=== PATIENT | female | born 2005 | race Caucasian/White ===

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

== ENCOUNTER 2023-06-07 01:36 | Emergency (ER) | payer OTHER, SELFPAY ==
[2023-06-07 01:54] VITALS: BP 115/78; PULSE 91; RESP 18; TEMP 36.6; O2SAT 98; BMI 26.0
== END 2023-06-07 04:12 | disposition left against medical advice (07) ==
PROVIDERS: Emergency Provider Emergency Medicine
DX: S69.90XA Unspecified injury of unspecified wrist, hand and finger(s), initial encounter (principal); W22.09XA Striking against other stationary object, initial encounter; Y93.E1 Activity, personal bathing and showering; Y92.012 Bathroom of single-family (private) house as the place of occurrence of the external cause; Y99.9 Unspecified external cause status
CPT/HCPCS: 99281

== ENCOUNTER 2024-03-01 17:42 | Emergency (ER) | payer OTHER, SELFPAY ==
--- NOTE | 2024-03-01 17:49 | ECG_ITS ---
Test Reason : CHEST PAIN Blood Pressure : / mmHG Vent. Rate : 067 BPM Atrial Rate : 067 BPM P-R Int : 160 ms QRS Dur : 086 ms QT Int : 384 ms P-R-T Axes : 046 099 040 degrees QTc Int : 405 ms Normal sinus rhythm Rightward axis Borderline ECG When compared with ECG of 21-OCT-2012 19:33, Rightward axis noted Referred By: Generic ED Physician Electronically Signed By:SUDHIR HAGAN MD
[2024-03-01 18:14] VITALS: BP 129/84; PULSE 69; RESP 14; TEMP 36.5; O2SAT 99; BMI 29.8
--- NOTE | 2024-03-01 18:14 | ED.GENADULT ---
HPI - General Adult General Chief complaint: Abdominal Pain Stated complaint: Chest pain + abd pain Time Seen by Provider: 03/02/24 00:27 Source: patient Mode of arrival: ambulatory Limitations: no limitations History of Present Illness ED Provider: Mariah Moreira NP HPI narrative: Patient is a 18-year-old female who presents to the emergency department for evaluation. She reports that for ?many years? since she was a child she is experienced issues with diffuse abdominal cramping and varying constipation and diarrhea. The past year she has been experiencing intermittent diffuse anterior chest pain associated with her abdominal pain. She reports that 2 weeks ago she was evaluated at primary care doctor's office that she was experiencing associated nausea, she was given a prescription for Zofran which did help her nausea and she was advised to get lab work done but she never made it to the lab. She states ?I just want to know what is going on this has been going on for 2 many years and I need answers?. She states that she requested a GI referral from her most recent appointment but she was not seen by her primary care provider and she was advised that she needed to have a follow-up with her PCP before could be given. She denies fevers, chills, recent ill contacts, URI symptoms, cough, shortness of breath, hematemesis, hematochezia, melena, pelvic pain, abnormal vaginal discharge or abnormal bleeding, urinary frequency/urgency/hesitancy. Related Data Previous Rx's ?Medication ?Instructions ?Recorded aluminum-mag hydroxide-simethicone 5 ml PO 5XD PRN indigestion #30 mL 04/16/21 400 mg-400 mg-40 mg/5 mL oral susp (Maalox Maximum Strength) famotidine 20 mg tablet (Pepcid) 20 mg PO DAILY #14 tabs 04/16/21 ondansetron HCl 4 mg tablet 4 mg PO Q8H PRN nausea and 04/16/21 (Zofran) vomiting #10 tabs amoxicillin 875 mg-potassium 1 tab PO BID 10 days #20 tabs 08/07/21 clavulanate 125 mg tablet (Augmentin) ibuprofen 600 mg tablet 600 mg PO Q6H PRN fever #14 tabs 08/07/21 amoxicillin 875 mg-potassium 1 tab PO BID 7 days #14 tabs 11/10/21 clavulanate 125 mg tablet lidocaine HCl 2 % mucosal solution 1 appl mucous membrane TID PRN 10/09/22 (Lidocaine Viscous) pain #100 mL valacyclovir 1 gram tablet 2,000 mg (2 x 1 gram) PO BID #4 10/09/22 tabs dicyclomine 20 mg tablet 20 mg PO QID #20 tabs 03/02/24 Allergies Allergy/AdvReac Type Severity Reaction Status Date / Time No Known Allergies Allergy Verified 03/01/24 18:16 Review of Systems Review of Systems: Yes all other systems are reviewed and are negative [facility] Past Medical History Attestation statement: The following information was validated with the patient. Source: old records reviewed Medical History Anxiety Social History Social History Alcohol intake: never Patient Tobacco Use Status: Never used Tobacco Advance Directives: No Advance Directives Information Provided: Yes Physical Exam ED Vital Signs: Vital Signs - 24 hr 03/01/24 18:14 03/02/24 00:43 Temperature 97.7 F 97.6 F Pulse Rate 69 68 Respiratory Rate 14 17 Blood Pressure 129/84 116/67 Pulse Oximetry 99 95 Oxygen Delivery Method Room Air Room Air BMI result Body Mass Index 29.8 Appearance: Alert.?Oriented to person, place and time. No acute distress.?Normal affect. Eyes: Pupils equal, round and reactive to light.? ENT: Pharynx normal.?? Neck: Normal inspection.? Neck supple.?? CVS: Heart sounds normal. Normal heart rate and rhythm.? Pulses normal.?? Respiratory: No respiratory distress.? Lung sounds clear to auscultation bilaterally?? Abdomen: Soft and non-tender. Normoactive bowel sounds. No pulsatile mass.?? Skin: Skin warm and dry.? Normal skin color.? Extremities: No lower extremity edema.? No calf ttp? Neuro: Moves all extremities spontaneously. Sensation intact bilaterally. Ambulates with normal steady gait. Course Course Course Narrative: RME, this is a rapid medical exam performed by Srinivasan Che please refer to primary provider for complete H&P- 18-year-old female presents for evaluation of chest pain and upper abdominal pain on and off for the last few years. She has not seen GI in the past. Plan for labs including LFTs, lipase and EKG. Medical Decision Making Medical Decision Making [facility] Narrative: Patient is a 18-year-old female who reports an ongoing history with abdominal pain constipation and diarrhea as per HPI who presents today for persistent symptoms in addition to intermittent chest pain over the past year. Overall she appears well, she is nontoxic afebrile without tachycardia tachypnea or hypoxia. She is speaking clear full sentences. Her abdominal examination is benign, no rigidity guarding, no rebound tenderness. She is drinking a soda and eating a bag of chips at the time of my evaluation. Clinically does not appear consistent with acute intra-abdominal etiology. Serum labs were obtained prior to my assumption of care; CBC is without leukocytosis anemia or thrombocytopenia. No electrolyte derangement. No FILI. Transaminases and lipase are within normal range. HCG is negative. High sensitive troponin is below detectable limits, EKG is nonischemic revealing normal sinus rhythm with ventricular rate of 67, QTC 405, no ST elevation, no ST depression. Review possible etiologies for symptoms including GERD, gastritis, IBS, suspect less likely to be IBD. Not consistent with cholecystitis, pancreatitis, SBO, diverticulitis, appendicitis. Recommended trial of dicyclomine for pain, and provided contact information for Gastroenterology further outpatient follow-up given chronicity of symptoms. Discussed worrisome signs and symptoms that would warrant re-evaluation in the emergency department. All questions answered. Stable for discharge Differential Diagnosis Differential Diagnoses: The differential diagnosis associated with the presentation includes (See narrative above) Admission/Observation Consideration of admission/observation: Escalation of care including admission/observation considered Lab Data [facility] Lab Attestation statement: I reviewed the patient's lab results. (See narrative above) 03/01/24 18:30 03/01/24 18:30 Labs: Lab Results 03/01/24 03/01/24 Range/Units 18:30 18:37 WBC 6.9 (4.8-10.8) X10*3/uL RBC 5.00 (4.20-5.50) X10*6/uL Hgb 14.7 (12.0-16.0) g/dl Hct 43.2 (37.0-47.0) % MCV 86.4 (80.0-98.0) fL MCH 29.4 (27.0-33.0) pg MCHC 34.0 (31.0-35.0) g/dl RDW 12.2 (11.0-16.0) % Plt Count 250 (160-400) X10*3/uL MPV 9.3 L (9.4-12.3) fL Immature Gran % (Auto) 0.1 (0.0-0.4) % Neut % (Auto) 60.0 (45-73) % Lymph % (Auto) 29.1 (20-40) % [place] % (Auto) 9.7 (2-11) % Eos % (Auto) 1.0 (0-4) % Baso % (Auto) 0.1 (0-2) % Lymph # (Auto) 2.0 (1.2-4.9) X10*3/uL [place] # (Auto) 0.7 (0.1-1.2) X10*3/uL Eos # (Auto) 0.1 (0.0-0.4) X10*3/uL Baso # (Auto) 0.0 (0.0-0.2) X10*3/uL Abs Immat Gran (auto) 0.01 (0.00-0.03) X10*3/uL Absolute Neuts (auto) 4.2 (2.0-8.3) x10*3/uL Absolute Nucleated RBC 0.000 (0.0-0.012) X10*3/uL Nucleated RBC % (auto) 0.0 (0.0-0.2) /100WBC PT 12.1 (11.1-13.3) SEC INR 1.0 (0.9-1.1) Sodium 139 (135-145) mmol/L Potassium 3.9 (3.3-5.1) mmol/L Chloride 106 (96-108) mmol/L Carbon Dioxide 27 (22-29) mmol/L Anion Gap 10 L (12-20) BUN 10 (9-16) mg/dL Creatinine 0.73 (0.5-1.4) mg/dL Estim Creat Clear Calc 102.2 Estimated GFR > 60 Random Glucose 76 (60-115) mg/dL Calcium 9.4 (8.4-10.2) mg/dL Total Bilirubin 0.5 (0.0-1.0) mg/dL AST 15 (5-31) U/L ALT 11 (0-31) U/L Alkaline Phosphatase 60 (39-117) U/L Troponin I High Sens < 2.7 (<3.5-17.0) ng/L Total Protein 7.6 (6.5-8.0) g/dL Albumin 4.4 (3.5-5.0) g/dL Lipase 13 (8-78) U/L Beta HCG, Quant < 2 mIU/mL Urine Color Yellow Urine Appearance Clear Urine pH 7.0 (5.0-9.0) Ur Specific [place] 1.020 (1.005-1.025) Urine Protein Negative (Neg-Trace) mg/dL Urine Glucose (UA) Negative (Negative) mg/dL Urine Ketones Negative (Negative) mg/dL Urine Blood Negative (Negative) Urine Nitrite Negative (Negative) Ur Leukocyte Esterase Negative (Negative) Urine RBC 0-2 (0-2) /HPF Urine WBC 0-5 (0-5) /HPF Ur Squamous Epith Cells 0-2 (0-2) /HPF Urine Bacteria None Seen (None Seen) Hyaline Casts 0-2 (0-2) /LPF Independent Historian Clinical information obtained from an independent historian. History obtained from or confirmed by: Spouse Tests considered The following testing was considered but not selected: See narrative above, no indication for abdominal CT. Prescription Management I considered prescription management with: Pain Medication Discharge Plan Discharge Clinical Impression: Abdominal pain Patient Disposition: Home, Self-Care Instructions: Abdominal Pain (ED) Additional Instructions: You can take ibuprofen 200 mg, 3 tablets (600mg) every 6-8 hours as needed for pain, in addition to Tylenol 500 mg, 2 tablets (1,000mg) every 4-6 hours as needed for pain, but not to exceed 3 doses daily (3,000mg).? Take dicyclomine as prescribed for abdominal pain. Contact Gastroenterology office to arrange for a new patient visit, you may contact your primary care doctor's office as well to see if they can help coordinate a GI appointment if there is any delay an appointment through [place]. Return back to emergency department any new or worsening symptoms or concerns. Prescriptions: New dicyclomine 20 mg tablet 20 mg PO QID Qty: 20 0RF No Action alum-mag hydroxide-simeth [Maalox Maximum Strength] 400-400-40 mg/5 mL suspension 5 ml PO 5XD PRN (Reason: indigestion) Qty: 30 0RF ondansetron HCl [Zofran] 4 mg tablet 4 mg PO Q8H PRN (Reason: nausea and vomiting) Qty: 10 0RF famotidine [Pepcid] 20 mg tablet 20 mg PO DAILY Qty: 14 0RF amoxicillin-pot clavulanate [Augmentin] 875-125 mg tablet 1 tab PO BID 10 Days Qty: 20 0RF ibuprofen 600 mg tablet 600 mg PO Q6H PRN (Reason: fever) Qty: 14 0RF amoxicillin-pot clavulanate 875-125 mg tablet 1 tab PO BID 7 Days Qty: 14 0RF valacyclovir 1 gram tablet 2,000 mg PO BID Qty: 4 0RF lidocaine HCl [Lidocaine Viscous] 2 % solution 1 appl mucous membrane TID PRN (Reason: pain) Qty: 100 0RF Referrals: Dandy Luna MD [Physician] - Print Language: [place]
[2024-03-01 18:43] LABS: Basophils Percent Auto 0.1 % (0-2); Eosinophils Absolute Auto 0.1 X10*3/uL (0.0-0.4); Hematocrit 43.2 % (37.0-47.0); Hemoglobin 14.7 g/dl (12.0-16.0); Imm Gran Abs Auto 0.01 X10*3/uL (0.00-0.03); Imm Gran Pct Auto 0.1 % (0.0-0.4); Lymphocytes Percent Auto 29.1 % (20-40); MANUAL DIFF FLAG NO; Mean Corpuscular Hemoglobin 29.4 pg (27.0-33.0); Mean Corpuscular Volume 86.4 fL (80.0-98.0); Mean Platelet Volume 9.3 fL (9.4-12.3); Monocytes Absolute Auto 0.7 X10*3/uL (0.1-1.2); Monocytes Percent Auto 9.7 % (2-11); Neutrophils Absolute Auto 4.2 x10*3/uL (2.0-8.3); Platelet Count 250 X10*3/uL (160-400); Red Cell Distribution Width 12.2 % (11.0-16.0); White Blood Count 6.9 X10*3/uL (4.8-10.8)
[2024-03-01 18:44] LABS: Appearance Urine Clear; Color Urine Yellow; Glucose Urine UA Negative (Negative); Leukocyte Esterase Urine Negative (Negative); Nitrite Urine Negative (Negative); Urine Blood Negative (Negative); Urine Ketones Negative (Negative); Urine Protein Negative (Neg-Trace)
[2024-03-01 18:49] LABS: Bacteria Urine None Seen (None Seen); Hyaline Casts Urine 0-2 /LPF (0-2); RBC Urine 0-2 /HPF (0-2); Squamous Epithelial Cell Urine 0-2 /HPF (0-2); WBC Urine 0-5 /HPF (0-5)
[2024-03-01 18:51] LABS: Prothrombin Time 12.1 SEC (11.1-13.3)
[2024-03-01 19:06] LABS: Alanine Aminotransferase 11 U/L (0-31); Albumin Level 4.4 g/dL (3.5-5.0); Alkaline Phosphatase 60 U/L (39-117); Anion Gap 10 (12-20); Aspartate Amino Transferase 15 U/L (5-31); Bilirubin Total 0.5 mg/dL (0.0-1.0); Blood Urea Nitrogen 10 mg/dL (9-16); Calcium 9.4 mg/dL (8.4-10.2); Carbon Dioxide 27 mmol/L (22-29); Chloride 106 mmol/L (96-108); Creatinine Clr Calc Pharmacy 102.2; Estimated Glomerular Filt Rate > 60; Glucose Random 76 mg/dL (60-115); Lipase 13 U/L (8-78); Potassium 3.9 mmol/L (3.3-5.1); Sodium 139 mmol/L (135-145); Total Protein 7.6 g/dL (6.5-8.0)
[2024-03-01 19:08] LABS: HCG Quantitative < 2 mIU/mL
[2024-03-01 19:09] LABS: Troponin-I High Sensitivity < 2.7 ng/L (<3.5-17.0)
[2024-03-02 00:43] VITALS: BP 116/67; PULSE 68; RESP 17; TEMP 36.4; O2SAT 95
[2024-03-02 01:46] VITALS: BP 116/67; PULSE 68; RESP 17; TEMP 36.4; O2SAT 95
== END 2024-03-02 01:47 | disposition home or self-care (01) ==
PROVIDERS: Physician Assistant; Emergency Provider Internal Medicine
DX: R10.10 Upper abdominal pain, unspecified (principal); R07.9 Chest pain, unspecified; R19.7 Diarrhea, unspecified; K59.00 Constipation, unspecified
CPT/HCPCS: 36415; 80053; 81001; 83690; 84484; 84702; 85025; 85610; 93005; 99283; 99284

== ENCOUNTER → 2024-03-01 17:49 | Outpatient (BNV) | payer OTHER, SELFPAY | PROVIDERS: Emergency Provider Internal Medicine; Visit Provider Internal Medicine Cardiovascular Disease | DX: R07.9 Chest pain, unspecified (principal) | CPT/HCPCS: 93010 ==

== ENCOUNTER 2025-02-03 02:52 | Emergency (ER) | payer MEDICAID, SELFPAY ==
--- NOTE | ~2025-02-03 | XR_ITS ---
CLINICAL HISTORY: cough 2 view chest x-ray Comparison: None Findings: No consolidation or effusion. Heart size is normal. No acute fracture. IMPRESSION: 1. No acute findings. This document has been electronically signed by: Juanito Hunter MD on 02/03/2025 03:30:15
[2025-02-03 02:55] VITALS: BP 120/85; PULSE 88; RESP 18; TEMP 36.6; O2SAT 96; BMI 29.1
--- NOTE | 2025-02-03 03:18 | ED_ITS ---
HPI - General Adult General Chief complaint: Upper Respiratory Symptoms Stated complaint: CP, Headache Time Seen by Provider: 02/03/25 03:02 Source: patient, RN notes reviewed and old records reviewed Mode of arrival: ambulatory Limitations: no limitations History of Present Illness ED Provider: Chinedu MELISSA narrative: your opinion 1-year-old female who denies any past medical history presents for evaluation of cough, congestion. She reports symptoms for the last 3 days. She has not checked her temperature he has had subjective fevers and chills she reports some chest tightness while coughing. Denies any significant shortness of breath but endorses production of green sputum. Denies any sore throat. She has no abdominal pain, nausea vomiting. Denies any recent travel or sick contacts Related Data Previous Rx's ?Medication ?Instructions ?Recorded aluminum-mag hydroxide-simethicone 5 ml PO 5XD PRN indigestion #30 mL 04/16/21 400 mg-400 mg-40 mg/5 mL oral susp (Maalox Maximum Strength) famotidine 20 mg tablet (Pepcid) 20 mg PO DAILY #14 tabs 04/16/21 ondansetron HCl 4 mg tablet 4 mg PO Q8H PRN nausea and 04/16/21 (Zofran) vomiting #10 tabs amoxicillin 875 mg-potassium 1 tab PO BID 10 days #20 tabs 08/07/21 clavulanate 125 mg tablet (Augmentin) ibuprofen 600 mg tablet 600 mg PO Q6H PRN fever #14 tabs 08/07/21 amoxicillin 875 mg-potassium 1 tab PO BID 7 days #14 tabs 11/10/21 clavulanate 125 mg tablet lidocaine HCl 2 % mucosal solution 1 appl mucous membrane TID PRN 10/09/22 (Lidocaine Viscous) pain #100 mL valacyclovir 1 gram tablet 2,000 mg (2 x 1 gram) PO BID #4 10/09/22 tabs dicyclomine 20 mg tablet 20 mg PO QID #20 tabs 03/02/24 azithromycin 250 mg tablet See Rx Instructions PO .COMPLEX #6 02/03/25 tabs prednisone 20 mg tablet 40 mg (2 x 20 mg) PO DAILY #10 tabs 02/03/25 Allergies Allergy/AdvReac Type Severity Reaction Status Date / Time No Known Allergies Allergy Verified 02/03/25 02:56 Review of Systems Constitutional: Constitutional: Reports body ache(s), Reports chills, Reports fatigue, Reports fever(s) and Reports headache(s) ENT: Denies vertigo, Denies dizziness, Reports headache(s) and Denies sore throat Cardiovascular: Cardiovascular: Denies dyspnea Respiratory: Respiratory: Reports change in phlegm color, Reports chest congestion, Reports cough, Reports pain with cough and Denies dyspnea Gastrointestinal: Gastrointestinal: Denies abdominal pain, Denies nausea and Denies vomiting Musculoskeletal: Musculoskeletal: Denies back pain Integumentary/Breasts: Skin/Breast: Denies rash Neurologic: Denies vertigo, Denies dizziness and Reports headache(s) Endocrine: Endocrine: Reports fatigue PMFSH Past Medical History Medical History Anxiety Social History Social History Alcohol intake: never Patient Tobacco Use Status: Never used Tobacco Advance Directives: No Do you have a plan to hurt others: No Plan Physical Exam ED Vital Signs: Vital Signs - 24 hr 02/03/25 02:55 Temperature 97.9 F Pulse Rate 88 Respiratory Rate 18 Blood Pressure 120/85 Pulse Oximetry 96 Oxygen Delivery Method Room Air BMI result Body Mass Index 29.1 Const General: healthy appearing, comfortable, no acute distress, alert and awake Nutritional Appearance: well nourished Orientation/consciousness: patient oriented x3 HENMT Head: Yes normocephalic and Yes atraumatic Eyes Eyelids: Yes eyelids normal Conjunctivae: conjunctivae normal Sclerae: sclerae normal Corneas: corneas normal Pupils: Equal, round and reactive pupils present EOM: EOMs intact bilaterally Neck Neck: Yes full ROM Resp Effort & Inspection: normal respiratory effort, able to speak in complete sentences, no audible wheezes and not labored Auscultation: clear to auscultation bilaterally Cardio Rate: regular rate Rhythm: regular rhythm GI Inspection: No distended Palpation (GI): Soft to palpation, not firm, nontender, no guarding and not rigid Skin General skin exam: elasticity normal Neuro General: patient oriented x3 Cranial nerves: Yes Equal, round and reactive pupils present and Yes Bilaterally intact EOM present Cognition (Neuro): normal cognition Extrem Other: Moving all extremities well without any obvious deformities Medical Decision Making Medical Decision Making [facility] Narrative: 19-year-old female with no significant past medical history presents for evaluation of flu-like symptoms. She is quite well appearing, physical exam is benign. Vital signs are stable. Plan for chest x-ray and viral testing. Differential Diagnosis Differential Diagnoses: The differential diagnosis associated with the presentation includes Viral syndrome Upper respiratory infection Sinusitis Allergic rhinitis Environmental allergies pneumonia Lab Data Labs: Lab Results 02/03/25 Range/Units 03:00 Influenza Type A (PCR) NEGATIVE (Negative) Influenza Type B (PCR) NEGATIVE (Negative) RSV RNA Qual (PCR) NEGATIVE (Negative) SARS-CoV-2 RNA (RT-PCR) NEGATIVE (Negative) Independent Interpretation I performed an independent interpretation of an: Plain X-Ray Interpretation: agree with Radiology interpretation Radiology Impression Discussion of test interpretation with radiology: I have reviewed the radiologist's reading. Radiologist Impression: Findings: No consolidation or effusion. Heart size is normal. No acute fracture. IMPRESSION: 1. No acute findings. This document has been electronically signed by: Juanito Hunter MD on 02/03/2025 03:30:15 Discharge Plan Discharge Clinical Impression: Upper respiratory infection Patient Disposition: Home, Self-Care Instructions: Upper Respiratory Infection (ED) Additional Instructions: your chest x-ray was clear. Your viral swabs were negative. I recommend taking azithromycin as prescribed and prednisone as well. you may benefit from an [id number] allergy medication daily follow-up with your primary doctor, return for new or worsening symptoms Prescriptions: New azithromycin 250 mg tablet See Rx Instructions .ROUTE .COMPLEX Qty: 6 0RF Rx Instructions: For 250 mg dose pack: take 500 mg today (day 1), then 250 mg for 4 days (days 2-5) prednisone 20 mg tablet 40 mg PO DAILY Qty: 10 0RF No Action alum-mag hydroxide-simeth [Maalox Maximum Strength] 400-400-40 mg/5 mL suspension 5 ml PO 5XD PRN (Reason: indigestion) Qty: 30 0RF ondansetron HCl [Zofran] 4 mg tablet 4 mg PO Q8H PRN (Reason: nausea and vomiting) Qty: 10 0RF famotidine [Pepcid] 20 mg tablet 20 mg PO DAILY Qty: 14 0RF amoxicillin-pot clavulanate [Augmentin] 875-125 mg tablet 1 tab PO BID 10 Days Qty: 20 0RF ibuprofen 600 mg tablet 600 mg PO Q6H PRN (Reason: fever) Qty: 14 0RF amoxicillin-pot clavulanate 875-125 mg tablet 1 tab PO BID 7 Days Qty: 14 0RF valacyclovir 1 gram tablet 2,000 mg PO BID Qty: 4 0RF lidocaine HCl [Lidocaine Viscous] 2 % solution 1 appl mucous membrane TID PRN (Reason: pain) Qty: 100 0RF dicyclomine 20 mg tablet 20 mg PO QID Qty: 20 0RF Print Language: [place]
--- OUTSIDE RECORDS SUMMARY | 2025-02-03 03:33 | XMS_ITS | Encounter Summary ---
Author Organization [facility] Address [address] [place] [address] Phone Care Team Providers Care Lokie Engineer Name Role Phone Bhumi Mckeon MD Primary Care Provider Encounter Details Date Type Department Care Team (Late st Contact Info) Description 05/15/2017 Conversion Encounter [facility] [address] [place] [address] Social History Tobacco Use Types Packs/Day Years Used Date Smoking Tobacco: Never Comments:Never smoker Comments Unknown Sex and Gender Information Value Date Recorded Sex Assigned at Female 07/18/2020 6:00 PM EDT Legal Sex Female 4:57 PM EDT Gender Identity Female 07/18/2020 6:00 PM EDT Sexual Orientation Bisexual 08/28/2022 9: 46 AM EST documented as of this encounter Plan of Treatment Not on file documented as of this encounter Visit Diagnoses Not on filedocumented in this encounter Care Teams Lokie Engineer Relationship Specialty Start Date End Date Bhumi Mckeon MD [address] [place] [address] PCP - General 05/09/17 06/09/24 documented as of this encounter
--- OUTSIDE RECORDS SUMMARY | 2025-02-03 03:33 | XMS_ITS | Clinical Summary ---
Author Organization [facility] Address [address] [place] [address] Phone Care Team Providers Care Appellate Law Clerk Name Role Phone Unavailable Primary Care Provider Unavailabl e Allergies No known active allergies Medications polyethylene glycol (MiraLax) 17 GM/SCOOP powderIndications:O ther constipation Take 17 g by mouth daily. Stir and dissolve powder into 4 to 8 ounces of beverage and then drink. 578 g 3 2 Active hydrOXYzine 25 MG tabletIndications:A nxiety Take 1 tablet (25 mg total) by mouth nightly as needed for anxiety. 30 tablet 1 3 Active ibuprofen 200 MG tabletIndications:H erpes labialis TAKE 3 TABLETS BY MOUTH EVERY 6 HOURS NEEDED FOR PAIN OR FEVER 120 tablet 1 3 Active ondansetron ODT 8 MG disintegrating tabletIndications:N ausea Take 1 tablet (8 mg total) by mouth every 8 (eight) hours as needed for nausea or vomiting. 14 tablet 4 Active ibuprofen 600 MG tabletIndications:A bdominal cramps Take 1 tablet (600 mg total) by mouth every 6 (six) hours as needed for mild pain or fever. 30 tablet 1 4 Active dicyclomine 20 MG tablet 4 Active omeprazole 40 MG capsuleIndications: Gastroesophageal reflux disease, unspecified whether esophagitis present Take 1 capsule (40 mg total) by mouth daily. 30 capsule 3 4 03/03/20 25 Active cetirizine 10 MG tabletIndications:A llergic rhinitis, unspecified seasonality, unspecified trigger TAKE 1 TABLET BY MOUTH NIGHTLY NEEDED FOR ALLERGIES. 90 tablet 1 4 Active Active Problems Problem Noted Date Diagnosed Date Current mild episode of jong r depressive disorder without prior episode 06/21/2022 Overview (06/21/2022): 06/21/22; consult completed. F/u scheduled. Brief johannRoberto Carlos Proctor Assessment & Plan (02/13/2023 11:19 AM EDT): 02/13/23-Symptoms continue. Pt. To reconnect with outpatient therapy. Assessment & Plan (06/28/2022 3:22 PM EDT): Identified symptoms support diagnosis related to depressive disorder. There is also a history of anxiety disorder, at this moment Abby does not report pervasive symptoms of anxiety, it is important to continue monitoring. Symptoms have been persistent, are experienced most days, and have impacted daily functioning. Follow up interventions focus on processing triggers and developing coping skills would be of benefit to support identified needs, other referrals will be discussed and completed as necessary. PLAN: 1. Follow up with [facility]; Virtual visit scheduled, Abby is aware that appt could be scheduled in person or virtual. 2. Patient goal is to develop strategies to regulate emotions. 3. Behavioral Recommendations: a. Focus on recommendations discussed today. b. Attend to scheduled appt. Assessment & Plan (06/21/2022 1:43 PM EDT): Identified symptoms support diagnosis related to depressive disorder. There is also a history of anxiety disorder, at this moment Abby does not report pervasive symptoms of anxiety, it is important to continue monitoring. Symptoms have been persistent, are experienced most days, and have impacted daily functioning. Follow up interventions focus on processing triggers and developing coping skills would be of benefit to support identified needs, other referrals will be discussed and completed as necessary. PLAN: 1. Follow up with [facility]; Virtual visit scheduled, Abby is aware that appt could be scheduled in person or virtual. 2. Patient goal is to develop strategies to regulate emotions. 3. Behavioral Recommendations: a. Focus on awareness of behaviors b. Complete task that may provide a positive reinforcement (small task are good!) Anxiety disorder 02/23/2021 Assessment & Plan (02/13/2023 11:20 AM EDT): 5/18/23-Symptoms continue. Plan to reconnect with outpatient therapist. Resolved Problems Problem Noted Date Diagnosed Date Resolved Date Encounter for surveillance o f injectable contraceptive 06/07/2021 08/28/2022 Overview (06/07/2021): Started Jun 2020. Pt on it for menses. Is in same sex relationship x 3+ years. Adjustment disorder of adolescence 07/18/2020 06/21/2022 Overview (07/18/2020): Tough time adjusting to the quarantine/pandemic, hard for her to talk about her feelings. Assessment & Plan (07/18/2020 6:08 PM EDT): Will refer to Est[facility] domestic travel consultant Acne vulgaris 11/20/2018 08/14/2023 Overview (11/20/2018): Acne for years. Mostly on face that seem deep and hurt. Seen with Carmel Yang To start tretinoin 0.25% and follow up with DR Mckeon in 8 weeks. Brother was on Accutane Assessment & Plan (07/18/2020 6:03 PM EDT): Tretinoin did not help, is very mild, will give benzoyl peroxide, clindamycin, use dove twice daily Assessment & Plan (11/20/2018 2:29 PM EST): Acne for a few years. OTC not helping. Seen today with Carmel Yang. Apply small amount tretinoin 0.25% cream 2 nights a week and then advance to every other night and if well tolerated after a few weeks then you can apply every night. Follow up with Dr Mckeon in a few months, sooner as needed. Mild intermittent asthma without complication 08/20/20 16 08/28/2022 Immunizations Immunization Administration Dates Next Due COVID-19 Pfizer, monovalent, 12+ years 1 COVID-19 Pfizer, ophelia-sucros e, 12+ years 01/22/2022 DTaP 5 07/21/2007, 5,02/02/2004,10/11,2003 H1N1 07/14/2009 HPV Vaccine 9 Valent 08/25/2017,04/17/2015 Hep A, ped/adol 08/25/2017,04/17/2015 Hep B, ped/adol 09/05/2004,02/02/2004,2003 Hib (HbOC) 09/05/2004 Hib (PRP-T) 02/02/2004,2003,2003 IPV 07/21/2007, 4,2003,08/19 Influenza Split 10/22/2012,11/22/2011,06/18/2010 Influenza, injectable, quadr ivalent, preservative free 08/14/2023,06/11/2022,06/07/2021,07/18,08/25/2017 Influenza, injectable, trivalent 009,09/12/2008,07/21/2007,08/27,08/07/2004 MMR 07/24/2004 MMRV 07/21/2007 Meningococcal Conj (Menactra) MCV4P 07/18/2020,0 04/17/2015 Pneumococcal Conjugate 09/05/2004,2003,2003,08/19 Tdap 04/17/2015 Varicella 07/24/2004 Family History Medical History Relation Name Comments Asthma Brother Anxiety disorder Mother Vicky Hopkins Depression Mother Vicky Hopkins Relation Name Status Comments Brother Alive Brother: Asthma Father Lance Quinonez Alive Father: Healthy Maternal Grandfather Materna l grandfather: Suicide, Maternal Grandmother Alive Materna l grandmother: Osteoporosis Mother Vicky Hopkins Alive Mother: Heal thy Other Family history of cancer Paternal Grandfather Paterna l grandfather: , Myocardial infarction Social History Tobacco Use Types Packs/Day Years Used Date Smoking Tobacco: Never Smokeless Tobacco: Never Comments:Never smoker Alcohol Use Standard Drinks/Week Comments No 0 (1 standard drink = 0.6 oz pur e alcohol) Hunger/Food Answer Date Recorded In the last 12 months, did y ou or your family ever eat less than you felt you should because there wasn't enough money for food? No 08/28/2022 Stable Housing Answer Date Recorded Are you worried that in the next 2 months you may not have stable housing? No 08/28/2022 Transportation Concerns Answer Date Rec orded In the last 12 months, have you or your family ever had to go without healthcare because you didn't have a way to get there? No 08/28/2022 Hazards in Home Answer Date Recorded Think about the place you li ve. Do you have problems with any of the following? Pests (mice or roaches), mold, no/not working smoke detectors, water leaks, no window guards. No 2021 Financing Utilities Answer Date Recorde d In the last 12 months, has t he electric, gas, oil, or water company threatened to shut off your services in your home? No 08/28/2022 Safety at Home Answer Date Recorded Are you or your family worried about feeling saf e in your home? No 08/28/2022 Outside Support Answer Date Recorded Do you feel that you need mo re support from other people or programs to help you care for yourself or your family? No 08/28/2022 Understanding Health Concerns Answer Da te Recorded Do you need help understandi ng your or your child's healthcare needs (diagnosis, medications, plan, etc.)? No 08/28/2022 Financing Health Concerns Answer Date R ecorded In the last 12 months, was t here a time when your child needed to see a doctor or get medications or supplies but could not because of cost? No 08/28/2022 Missing School or Work Answer Date Brandon rded Did you or your child miss s chool or work because of a health problem that could have been avoided? No 08/28/2022 Comments No Sex and Gender Information Value Date Recorded Sex Assigned at Female 07/18/2020 6:00 PM EDT Legal Sex Female 4:57 PM EDT Gender Identity Female 07/18/2020 6:00 PM EDT Sexual Orientation Bisexual 08/28/2022 9: 46 AM EST Last Filed Vital Signs Vital Sign Reading Time Taken Comments Blood Pressure 110/72 08/14/2023 2:00 PM EST Pulse 88 08/14/2023 2:00 PM EST Temperature 36.6 ??C (97.9 ??F) 03/03/2024 3:37 PM ED T Respiratory Rate - - Oxygen Saturation 99% 06/07/2021 9:41 AM EDT Inhaled Oxygen Concentration - - Weight 68.2 kg (150 lb 6.4 oz) 03/03/2024 3:37 P M EDT Height 151.4 cm (4' 11.61 ) 08/14/2023 2:[address] Body Mass Index 29.76 08/14/2023 2:00 PM EST Plan of Treatment Health Maintenance Due Date Last Done Comments Men B Vaccine (1 of 2 - Standard) 2019 Influenza Vaccines (#1) 2024 08/14/20, 06/11/2022, 06/07/2021, Additional history exists COVID-19 Vaccine (2023-2 5 season) 2024 01/22/2022, 08/16/2021, 07/26/2021 DTaP,Tdap,and Td Vaccines (7 - Td or Tdap) 04/17/2025 04/17/2015, 07/21/2007, 12/05/2004, Additional history exists HIB Vaccines Completed 09/05/2004, 02/2004, 2003, Additional history exists Hepatitis B Vaccines Completed 09/05/2004, 02/02/2004, 2003 Pneumococcal Vaccine Completed 09/05/2004, 07/24/2004, 2003, Additional history exists IPV Vaccines Completed 07/21/2007, 06/30, 2003, Additional history exists MMR Vaccines Completed 07/21/2007, 07/24/2004 Varicella Vaccines Completed 07/21/2007, 07/24/2004 HPV Vaccines Completed 08/25/2017, 04/17/2015 Hepatitis A Vaccines Completed 08/25/2017, 04/17/20 15 Meningococcal Vaccine Completed 07/18/2020, 015 Procedures * Due to [place] [employer] law, this organization might not be sharing sensitive test results. Procedure Name Priority Date/Time Associated Diagnosis Comments CHLAMYDIA AND GONORRHEA, AMPLIFIED Routine 01/30/2024 4:56 PM EDT Nausea Chronic abdominal pain from Last 3 Months or Most Recently Relevant to Health Maintenance Results * Due to [place] [employer] law, this organization might not be sharing sensitive test results. * Chlamydia and Gonorrhoea, Amplified (01/30/2024 4:56 PM EDT) C trach VANESSA Negative Negative [facility] N gonorrhoeae VANESSA Negative Negative [facility] Urine (Urine) 01/30/2024 4:5 6 PM EDT 01/30/2024 Comment:Urine Narrative [facility] - 01/31/2024 11:06 PM EDT Performed at: ??01 - [facility] [address] ??[id number] Professional Bondsman: Sophia Merlos MD, Phone: ??[phone] us Kalina Lewis MD LAB MICROBIOLOGY - GENERAL OR DERABLES Final Result [facility] [address] [place] [address] from Last 3 Months or Most Recently Relevant to Health Maintenance Insurance [employer] NON PCC [facility] [employer] NON PCC [facility]
--- OUTSIDE RECORDS SUMMARY | 2025-02-03 03:33 | XMS_ITS | Encounter Summary ---
Author Organization [facility] Address [address] [place] [address] Phone Care Team Providers Care Teacher Adult Education Name Role Phone Bhumi Mckeon MD Primary Care Provider Encounter Details Date Type Department Care Team (Late st Contact Info) Description 10/14/2012 Documentation [facility] [place] Family Medicine [address] [place] [address] Family Medicine, Physician [address], [place] [phone] Social History Tobacco Use Types Packs/Day Years Used Date Smoking Tobacco: Never Assessed Comments Unknown Sex and Gender Information Value [...] on filedocumented in this encounter Care Teams Teacher Adult Education Relationship Specialty Start Date End Date Bhumi Mckeon MD [address] [place] [id number] PCP - General 05/09/17 06/09/24 documented as of this encounter
--- OUTSIDE RECORDS SUMMARY | 2025-02-03 03:33 | XMS_ITS | Encounter Summary ---
Author Organization [facility] Address [address] [place] [address] Phone Care Team Providers Care Graduate Studies Dean Name Role Phone Bhumi Mckeon MD Primary Care Provider Reason for Visit * Reason Comments Med Refill Encounter Details Date Type Department Care Team ([facility] st Contact Info) Description 11/10/2023 Refill [facility] [place] [address] [place] [address] Bhumi Mckeon MD [address] [place] [address] Gastroesophageal reflux disease, unspecified whether esophagitis present Social History Tobacco Use Types Packs/Day Years [...] AM EST documented as of this encounter Miscellaneous Notes * Telephone Encounter - Bhumi Mckeon MD - 11/10/2023 12:57 PM EST Script not refilled. Patient needs a follow-up appt. Can someone call her to arrange? Thanks. PPP * Telephone Encounter - Lukas Dennis LPN - 11/10/2023 11:03 AM EST Refill request for omeprazole 40 mg. documented in this encounter Plan of Treatment Not on file documented as of this encounter Visit Diagnoses Diagnosis Gastroesophageal reflux disease, unspecified whether esophagitis present documented in this encounter Care Teams Graduate Studies Dean Relationship Specialty Start Date End Date Bhumi Mckeon MD [address] [place] [address] [place] [id number] PCP - General 05/09/17 06/09/24 documented as of this encounter
--- OUTSIDE RECORDS SUMMARY | 2025-02-03 03:33 | XMS_ITS | Encounter Summary ---
Author Organization [facility] Address [address] [place] [address] Phone Care Team Providers Care Pre Assembly Wirer Name Role Phone Bhumi Mckeon MD Primary Care Provider Encounter Details Date Type Department Care Team (Late st Contact Info) Description 05/22/[address] [facility] [place] [address] [place] [address] Family Medicine, Physician [address], [place] [phone] Social History Tobacco Use Types Packs/Day Years [...] on filedocumented in this encounter Care Teams Pre Assembly Wirer Relationship Specialty Start Date End Date Bhumi Mckeon MD [address] [place] [id number] PCP - General 05/09/17 06/09/24 documented as of this encounter
--- OUTSIDE RECORDS SUMMARY | 2025-02-03 03:33 | XMS_ITS | Encounter Summary ---
Author Organization [facility] Address [address] [place] [address] Phone Care Team Providers Care Mirror Finishing Machine Operator Name Role Phone Bhumi Mckeon MD Primary Care Provider Encounter Details Date Type Department Care Team (Late st Contact Info) Description 02/13/[address] [facility] [place] Family Medicine [address] [place] [address] Family Medicine, Physician [address], [place] [phone] Social History Tobacco Use Types Packs/Day Years [...] on filedocumented in this encounter Care Teams Mirror Finishing Machine Operator Relationship Specialty Start Date End Date Bhumi Mckeon MD [address] [place] [id number] PCP - General 05/09/17 06/09/24 documented as of this encounter
[2025-02-03 03:42] LABS: Influenza A PCR NEGATIVE (Negative); Influenza B PCR NEGATIVE (Negative); Resp Syncy Virus RNA Qual PCR NEGATIVE (Negative); SARS COV2 PCR INHOUSE NEGATIVE (Negative)
[2025-02-03 03:53] VITALS: BP 120/85; PULSE 88; RESP 18; TEMP 36.6; O2SAT 96
== END 2025-02-03 03:53 | disposition home or self-care (01) ==
PROVIDERS: Emergency Provider Emergency Medicine
DX: J06.9 Acute upper respiratory infection, unspecified (principal); R05.9 Cough, unspecified; Z03.818 Encounter for observation for suspected exposure to other biological agents ruled out
CPT/HCPCS: 0241U; 71046; 99282; 99283

== ENCOUNTER → 2025-02-03 02:58 | Outpatient (BNV) | payer MEDICAID, SELFPAY | PROVIDERS: Emergency Provider Emergency Medicine; Visit Provider Radiology Diagnostic Radiology | DX: R05.9 Cough, unspecified (principal) | CPT/HCPCS: 71046 ==

== ENCOUNTER 2025-09-02 07:10 | Emergency (ER) | payer MEDICAID, SELFPAY ==
--- NOTE | 2025-09-02 | ECG_ITS ---
Test Reason : SOB Blood Pressure : */* mmHG Vent. Rate : 84 BPM Atrial Rate : 84 BPM P-R Int : 150 ms QRS Dur : 88 ms QT Int : 354 ms P-R-T Axes : 58 93 39 degrees QTcB Int : 418 ms Normal sinus rhythm with sinus arrhythmia Rightward axis Borderline ECG When compared with ECG of 01-Mar-2024 17:49, No significant change was found Referred By: Generic ED Physician Electronically Signed By: LANDEN SAL
--- NOTE | ~2025-09-02 | XR_ITS ---
EXAMINATION: XR CHEST CLINICAL INFORMATION: cough COMPARISON: Normal 2024 TECHNIQUE: Single portable AP upright position view of the chest was obtained. FINDINGS: No consolidation, pleural fissure pneumothorax. Cardiomediastinal silhouette size is normal. Osseous structures are intact. Mild S-shaped curvature of the thoracic spine. No gross free air beneath the diaphragm. XR/XR chest 1V IMPRESSION: Normal single AP view chest. Electronically signed by: Andrew Bradshaw MD 09/02/2025 09:07 AM [facility]
[2025-09-02 07:15] VITALS: BP 120/78; PULSE 86; RESP 17; TEMP 36.6; O2SAT 98; BMI 28.3
[2025-09-02 07:52] LABS: MANUAL DIFF FLAG NO
[2025-09-02 07:53] LABS: Hematocrit 45.4 % (37.0-47.0); Hemoglobin 15.3 g/dl (12.0-16.0); Imm Gran Abs Auto 0.04 X10*3/uL (0.00-0.03); Imm Gran Pct Auto 0.3 % (0.0-0.4); Lymphocytes Absolute Auto 1.4 X10*3/uL (1.2-4.9); Mean Corpuscular HGB Conc 33.7 g/dl (31.0-35.0); Mean Corpuscular Hemoglobin 29.5 pg (27.0-33.0); Mean Corpuscular Volume 87.6 fL (80.0-98.0); NRBC Abs Auto 0.000 X10*3/uL (0.0-0.012); NRBC Pct Auto 0.0 /100WBC (0.0-0.2); Platelet Count 223 X10*3/uL (160-400); Red Blood Count 5.18 X10*6/uL (4.20-5.50); White Blood Count 11.7 X10*3/uL (4.8-10.8)
[2025-09-02 07:58] LABS: INTERNATIONAL NORM RATIO 1.0 (0.9-1.1); Prothrombin Time 11.9 SEC (11.2-13.5)
[2025-09-02 08:12] LABS: Alanine Aminotransferase 8 U/L (0-31); Albumin Level 4.7 g/dL (3.5-5.0); Alkaline Phosphatase 64 U/L (39-117); Anion Gap 12 (12-20); Aspartate Amino Transferase 18 U/L (5-31); Blood Urea Nitrogen 10 mg/dL (9-16); Calcium 9.3 mg/dL (8.4-10.2); Carbon Dioxide 23 mmol/L (22-29); Chloride 110 mmol/L (96-108); Creatinine Clr Calc Pharmacy 109.9; Estimated Glomerular Filt Rate > 60; Magnesium 1.9 mg/dL (1.6-2.6); Potassium 3.7 mmol/L (3.3-5.1); Sodium 141 mmol/L (135-145); Total Protein 7.6 g/dL (6.5-8.0)
--- NOTE | 2025-09-02 08:22 | ED_ITS ---
HPI - General Adult General Chief complaint: General Medical Stated complaint: chest pressure, vomiting blood Time Seen by Provider: 09/02/25 07:20 Source: patient Mode of arrival: ambulatory Limitations: no limitations History of Present Illness ED Provider: CHUNG Best HPI narrative: Chief Complaint: ?I woke up this morning with a lot of chest pressure and it was really uncomfortable to breathe.? History of Present Illness: ? Onset: Symptoms began Friday with dry/sore throat and sinus congestion. ? Course: Similar symptoms Friday; improved during the day but worsened night with shivering and need for warm shower. ? Today: Awoke with significant chest pressure and shortness of breath; drinking water did not relieve discomfort. Dry cough present; coughing this morning. Reports blood when blowing nose and blood-tinged emesis while brushing teeth this morning (no active epistaxis). Baseline nausea (?I?m always nauseous?). Shortness of breath earlier this morning but denies current SOB. Feels very congested. ? Exposures: No known sick contacts. ? Aggravating/Relieving: None specifically noted. ? Prior history: States episode reminds her of prior bronchitis. To clarify from nursing triage patient did not have 1 episode of bright red vomiting she reports she noted scant blood streaked in her saliva when she spit out while brushing her teeth. Related Data Previous Rx's ?Medication ?Instructions ?Recorded aluminum-mag hydroxide-simethicone 5 ml PO 5XD PRN ind igestion #30 mL 04/16/21 400 mg-400 mg-40 mg/5 mL oral susp (Maalox Maximum Strength) famotidine 20 mg tablet (Pepcid) 20 mg PO DAILY #14 ta bs 04/16/21 ondansetron HCl 4 mg tablet 4 mg PO Q8H PRN nausea and 04/16/21 (Zofran) vomiting #10 tabs amoxicillin 875 mg-potassium 1 tab PO BID 10 days #20 tabs 08/07/21 clavulanate 125 mg tablet (Augmentin) ibuprofen 600 mg tablet 600 mg PO Q6H PRN fever #14 tabs 08/07/21 amoxicillin 875 mg-potassium 1 tab PO BID 7 days #14 t abs 11/10/21 clavulanate 125 mg tablet lidocaine HCl 2 % mucosal solution 1 appl mucous membr ane TID PRN 10/09/22 (Lidocaine Viscous) pain #100 mL valacyclovir 1 gram tablet 2,000 mg (2 x 1 gram) PO BI D #4 10/09/22 tabs dicyclomine 20 mg tablet 20 mg PO QID #20 tabs azithromycin 250 mg tablet See Rx Instructions PO .COM PLEX #6 02/03/25 tabs prednisone 20 mg tablet 40 mg (2 x 20 mg) PO DAILY # 10 tabs 02/03/25 albuterol sulfate 90 mcg/actuation 2 inh inhalation Q4 -6H PRN 09/02/25 breath activated powder inhaler shortness of breath or wheezing #1 ea benzonatate 100 mg capsule 100 mg PO BID PRN cough #20 caps 09/02/25 prednisone 20 mg tablet 40 mg (2 x 20 mg) PO DAILY 5 days 09/02/25 #10 tabs Allergies Allergy/AdvReac Type Severity Reaction Status Date / Time No Known Allergies Allergy Verified 09/02/25 07:21 Review of Systems 2 Review of Systems: Yes all other systems are reviewed and are negative [facility] Past Medical History Attestation statement: The following information was validated with the patient. Source: old records reviewed and nursing notes reviewed Medical History Anxiety Social History Social History Alcohol intake: never Patient Tobacco Use Status: Never used Tobacco Advance Directives: No Advance Directives Information Provided: Yes Do you have a plan to hurt others: No Plan Physical Exam ED Exam Exam: Appearance: Alert.? Oriented X3.? No acute distress.? Head: Normocephalic, atraumatic, no step-offs or deformities Eyes: Pupils equal, round and reactive to light.? ENT: Pharynx normal.? Neck: Normal inspection.? Neck supple.? CVS: Normal heart rate and rhythm.? Pulses normal.? Respiratory: No respiratory distress.? Breath sounds normal.? Abdomen: Soft and nontender.? Skin: Skin warm and dry.? Normal skin color.? Normal skin turgor.? Extremities: No lower extremity edema.? No calf ttp. 5/5 strength to bilateral upper and lower extremities Back: No midline tenderness, no C-spine tenderness, full range of motion, no CVA tenderness bilaterally Neuro: Oriented X 3.? No motor deficit.? No sensory deficit. CN 2-12 intact Vital Signs: Vital Signs - 24 hr 09/02/25 07:15 Temperature 98 F Pulse Rate 86 Respiratory Rate 17 Blood Pressure 120/78 Pulse Oximetry 98 Oxygen Delivery Method Room Air BMI result Body Mass Index 28.3 vss Course Reevaluation(s) Reevaluation #1: CBC with slight leukocytosis 11.7 no left shift. This is likely nonspecific or from viral illness. Chemistry unremarkable troponin negative with a nonischemic EKG. Coags normal. Flu, COVID, RSV negative. Time: 09:00 Reevaluation #2: Chest x-ray unremarkable. Patient's main complaint ran our body aches and pains. This is likely viral illness will order Tylenol. She feels comfortable with discharge home. I did advise her to return with new or worsening symptoms. She has not had any episodes of ?bleeding ?while here. Educated patient on diagnosis and treatment plan, answered all question, patient verbalizes understanding. At this time patient will be discharged home, advised to return with new or worsening symptoms. Educated on worrisome signs and symptoms and when to return. At this time I feel comfortable discharge home. Time: 09:21 Medical Decision Making Medical Decision Making MDM Narrative: Patient presents with acute chest pressure, congestion, dry cough, and episodic shortness of breath. Problem #1: Chest pressure with upper respiratory symptoms (r/o viral infection) Assessment: Chest discomfort with dry cough and congestion; exam shows clear lungs and normal cardiac findings; EKG and initial labs unremarkable. Differential diagnosis: 1. Influenza infection 2. COVID-19 infection 3. Acute bronchitis 4. Gastroesophageal irritation from cough/vomiting 5. Less likely cardiac ischemia (EKG normal, exam benign) Plan: * Obtain flu/COVID swab as discussed. * Continue to monitor laboratory results already in process. * Reassess following test results; provide supportive care per findings. Differential Diagnosis Differential Diagnoses: The differential diagnosis associated with the presentation includes * Influenza infection * COVID-19 infection * Acute bronchitis * Gastroesophageal reflux/irritation (from cough/vomiting) * Cardiac ischemia (low probability given normal EKG and exam) * Pneumonia * Pulmonary embolism- unlikley perc - * Pericarditis * Costochondritis * Other viral syndromes * Anxiety/panic attack * Asthma exacerbation Admission/Observation Consideration of admission/observation: Escalation of care including admission/observation considered (unlikely) Lab Data MDM Lab Attestation statement: I reviewed the patient's lab results. 09/02/25 07:47 09/02/25 07:47 Labs: Lab Results 09/02/25 09/02/25 Range/Units 07:46 07:47 WBC 11.7 H (4.8-10.8) X10*3/uL RBC 5.18 (4.20-5.50) X10*6/uL Hgb 15.3 (12.0-16.0) g/dl Hct 45.4 (37.0-47.0) % MCV 87.6 (80.0-98.0) fL MCH 29.5 (27.0-33.0) pg MCHC 33.7 (31.0-35.0) g/dl RDW 11.9 (11.0-16.0) % Plt Count 223 (160-400) X10*3/uL MPV 9.3 L (9.4-12.3) fL Immature Gran % (Auto) 0.3 (0.0-0.4) % Neut % (Auto) 78.6 H (45-73) % Lymph % (Auto) 11.8 L (20-40) % Schuyler % (Auto) 8.1 (2-11) % Eos % (Auto) 1.0 (0-4) % Baso % (Auto) 0.2 (0-2) % Lymph # (Auto) 1.4 (1.2-4.9) X10*3/uL Schuyler # (Auto) 1.0 (0.1-1.2) X10*3/uL Eos # (Auto) 0.1 (0.0-0.4) X10*3/uL Baso # (Auto) 0.0 (0.0-0.2) X10*3/uL Abs Immat Gran (auto) 0.04 H (0.00-0.03) X10*3/uL Absolute Neuts (auto) 9.2 H (2.0-8.3) x10*3/uL Absolute Nucleated RBC 0.000 (0.0-0.012) X10*3/uL Nucleated RBC % (auto) 0.0 (0.0-0.2) /100WBC PT 11.9 (11.2-13.5) SEC INR 1.0 (0.9-1.1) Sodium 141 (135-145) mmol/L Potassium 3.7 (3.3-5.1) mmol/L Chloride 110 H (96-108) mmol/L Carbon Dioxide 23 (22-29) mmol/L Anion Gap 12 (12-20) BUN 10 (9-16) mg/dL Creatinine 0.65 (0.5-1.4) mg/dL Estim Creat Clear Calc 109.9 Estimated GFR > 60 Random Glucose 97 (60-115) mg/dL Calcium 9.3 (8.4-10.2) mg/dL Magnesium 1.9 (1.6-2.6) mg/dL Total Bilirubin 0.4 (0.0-1.0) mg/dL AST 18 (5-31) U/L ALT 8 (0-31) U/L Alkaline Phosphatase 64 (39-117) U/L Troponin I High Sens < 2.7 (<3.5-17.0) ng/L Total Protein 7.6 (6.5-8.0) g/dL Albumin 4.7 (3.5-5.0) g/dL Influenza Type A (PCR) NEGATIVE (Negative) Influenza Type B (PCR) NEGATIVE (Negative) RSV RNA Qual (PCR) NEGATIVE (Negative) SARS-CoV-2 RNA (RT-PCR) NEGATIVE (Negative) Independent Interpretation I performed an independent interpretation of an: EKG (nondiagnostic for cc ) Radiology Impression Discussion of test interpretation with radiology: I have reviewed the radiologist's reading. External Record Review External record reviewed: Inpatient record, Office record, Outpatient record, Prior outpatient labs and Prior outpatient radiology Critical Care Time Critical Care Time Critical Care Time: No Discharge Plan Discharge Clinical Impression: Upper respiratory infection Patient Disposition: Home, Self-Care Instructions: Upper Respiratory Infection (ED) Additional Instructions: Take your medications as prescribed. If you were prescribed antibiotics today, it is important that you take your medication to their entirety, do not skip any doses, do not finish them early. Follow-up with your primary care provider this week. Return to the emergency department with new or worsening symptoms. Such as fevers, chills, chest pain, shortness of breath, nausea, vomiting, dizziness, headache, vision changes, lethargy In case of emergency call 911 Prescriptions: New prednisone 20 mg tablet 40 mg PO DAILY 5 Days Qty: 10 0RF benzonatate 100 mg capsule 100 mg PO BID PRN (Reason: cough) Qty: 20 0RF albuterol sulfate 90 mcg/actuation aerosol powdr breath activated 2 inh inhalation Q4-6H PRN (Reason: shortness of breath or wheezing) Qty: 1 0RF No Action alum-mag hydroxide-simeth [Maalox Maximum Strength] 400-400-40 mg/5 mL suspension 5 ml PO 5XD PRN (Reason: indigestion) Qty: 30 0RF ondansetron HCl [Zofran] 4 mg tablet 4 mg PO Q8H PRN (Reason: nausea and vomiting) Qty: 10 0RF famotidine [Pepcid] 20 mg tablet 20 mg PO DAILY Qty: 14 0RF amoxicillin-pot clavulanate [Augmentin] 875-125 mg tablet 1 tab PO BID 10 Days Qty: 20 0RF ibuprofen 600 mg tablet 600 mg PO Q6H PRN (Reason: fever) Qty: 14 0RF amoxicillin-pot clavulanate 875-125 mg tablet 1 tab PO BID 7 Days Qty: 14 0RF valacyclovir 1 gram tablet 2,000 mg PO BID Qty: 4 0RF lidocaine HCl [Lidocaine Viscous] 2 % solution 1 appl mucous membrane TID PRN (Reason: pain) Qty: 100 0RF dicyclomine 20 mg tablet 20 mg PO QID Qty: 20 0RF azithromycin 250 mg tablet See Rx Instructions .ROUTE .COMPLEX Qty: 6 0RF Rx Instructions: For 250 mg dose pack: take 500 mg today (day 1), then 250 mg for 4 days (days 2-5) prednisone 20 mg tablet 40 mg PO DAILY Qty: 10 0RF Referrals: Physician,None [Primary Care Provider, Medical] - 1 week Stand Alone Forms: Work/School Release Print Language: Angolan
[2025-09-02 08:26] LABS: Troponin-I High Sensitivity < 2.7 ng/L (<3.5-17.0)
--- OUTSIDE RECORDS SUMMARY | 2025-09-02 08:29 | XMS_ITS | Encounter Summary ---
Author Organization [facility] Address [address] [place] [address] Phone Care Team Providers Care Shank Skinner Name Role Phone Bhumi Mckeon MD Primary Care Provider Encounter Details Date Type Department Care Team (Late st Contact Info) Description 10/23/2012 Documentation [facility] [place] [facility] [address] [place] [address] Family Medicine, Physician [address] [phone] Social History Tobacco Use Types Packs/Day Years [...] on filedocumented in this encounter Care Teams Shank Skinner Relationship Specialty Start Date End Date Bhumi Mckeon MD [address] [place] [id number] PCP - General 05/09/17 06/09/24 documented as of this encounter
--- OUTSIDE RECORDS SUMMARY | 2025-09-02 08:30 | XMS_ITS | Encounter Summary ---
Author Organization [facility] Address [address] [place] [address] Phone Care Team Providers Care Insurance Verification Rep Name Role Phone Bhumi Mkceon MD Primary Care Provider Encounter Details Date Type Department Care Team (Late st Contact Info) Description 10/14/2012 Documentation [facility] [place] Family Medicine [address] [place] [address] Family Medicine, Physician [address] [phone] Social History Tobacco Use Types Packs/Day Years [...] on filedocumented in this encounter Care Teams Insurance Verification Rep Relationship Specialty Start Date End Date Bhumi Mckeon MD [address] [place] [id number] PCP - General 05/09/17 06/09/24 documented as of this encounter
--- OUTSIDE RECORDS SUMMARY | 2025-09-02 08:30 | XMS_ITS | Clinical Summary ---
Author Organization [facility] Address [address] [place] [address] Phone Care Team Providers Care Insurance Account Specialist Name Role Phone Unavailable Primary Care Provider [...] Active dicyclomine 20 MG tablet 4 Active cetirizine 10 MG tabletIndications:A llergic rhinitis, [...] as necessary. PLAN: 1. Follow up with [facility]; Virtual visit scheduled, Abby is aware that [...] as necessary. PLAN: 1. Follow up with [facility]; Virtual visit scheduled, Abby is aware that appt could be scheduled in person or virtual. 2. Patient goal is to develop strategies to regulate emotions. 3. Behavioral Recommendations: a. Focus on awareness of behaviors b. Complete task that may provide a positive reinforcement (small task are good!) Anxiety disorder 02/23/2021 Assessment & Plan (02/13/2023 11:20 AM EDT): 02/13/23-Symptoms continue. Plan to reconnect with outpatient therapist. [...] 6:08 PM EDT): Will refer to Esthela datapower consultant Acne vulgaris 11/20/2018 08/14/2023 Overview (11/20/2018): [...] Anxiety disorder Mother Vicky Hopkins Depression Mother Vicyk Hopkins Relation Name Status Comments Brother Alive [...] 86 08/14/2023 2:00 PM EST Temperature 36.6 C (97.9 F) 03/03/2024 3:37 PM EDT Respiratory Rate - - Oxygen Saturation 99% [...] Vaccine (1 of 2 - Standard) 2019 DTaP,Tdap,and Td Vaccines (7 - Td or Tdap) 04/17/2025 04/17/2015, 07/21/2007, 12/05/2004, Additional history exists Influenza Vaccines (#1) 2025 08/14/20, 06/11/2022, 06/07/2021, Additional history exists COVID-19 Vaccine (2024- 6 season) 2025 01/22/2022, 08/16/2021, 07/26/2021 HIB Vaccines Completed 09/05/2004, 02/2004, 2003, Additional [...] Completed 07/18/2020, 015 Procedures * Due to [place] [employer] law, this organization might not be sharing sensitive test results. Procedure Name Priority Date/Time Associated Diagnosis Comments CHLAMYDIA AND GONORRHEA, AMPLIFIED Routine 01/30/2024 4:56 PM EDT Nausea Chronic abdominal pain from Last 3 Months or Most Recently Relevant to Health Maintenance Results * Due to [place] [employer] law, this organization might not be sharing sensitive test results. * Chlamydia and Gonorrhoea, Amplified (01/30/2024 4:56 PM EDT) C trach VANESSA Negative Negative [facility] N gonorrhoeae VANESSA Negative Negative [facility] Urine (Urine) 01/30/2024 4:5 6 PM EDT 01/30/2024 Comment:Urine Narrative [facility] - 01/31/2024 11:06 PM EDT Performed at: 01 - [facility] [address] [id number] [place] Supervisor: Sophia Merlos MD, Phone: [phone] Kalina Lewis MD LAB MICROBIOLOGY - GENERAL OR DERABLES Final Result [facility] [address] [place] [address] from Last 3 Months or Most Recently Relevant to Health Maintenance Insurance [facility] NON PCC [facility] ACO [facility] NON PCC [facility] ACO
--- OUTSIDE RECORDS SUMMARY | 2025-09-02 08:30 | XMS_ITS | Encounter Summary ---
Author Organization [facility] Address [address] [place] [address] Phone Care Team Providers Care Lining Strap Closer Name Role Phone Bhumi Mckeon MD Primary Care Provider Encounter Details Date Type Department Care Team (Late st Contact Info) Description 05/15/2017 Conversion Encounter [facility] [address] [place] [address] Social History Tobacco Use Types Packs/Day Years [...] on filedocumented in this encounter Care Teams Lining Strap Closer Relationship Specialty Start Date End Date Bhumi Mckeon MD [address] [place] [address] PCP - General 05/09/17 06/09/24 documented as of this encounter
--- OUTSIDE RECORDS SUMMARY | 2025-09-02 08:30 | XMS_ITS | Encounter Summary ---
Author Organization [facility] Address [address] [place] [address] Phone Care Team Providers Care Assistant Associate Professor Name Role Phone Bhumi Mckeon MD Primary Care Provider Encounter Details Date Type Department Care Team (Late st Contact Info) Description 02/13/2010 Documentation [facility] [place] [address] [place] [address] Family Medicine, Physician [address] [phone] Social History Tobacco Use Types Packs/Day Years [...] on filedocumented in this encounter Care Teams Assistant Associate Professor Relationship Specialty Start Date End Date Bhumi Mckeon MD [address] [place] [id number] PCP - General 05/09/17 06/09/24 documented as of this encounter
--- OUTSIDE RECORDS SUMMARY | 2025-09-02 08:30 | XMS_ITS | Encounter Summary ---
Author Organization [facility] Address [address] [place] [address] Phone Care Team Providers Care Shift Production Supervisor Name Role Phone Bhumi Mckeon MD Primary Care Provider Encounter Details Date Type Department Care Team (Late st Contact Info) Description 05/22/2012 Documentation [facility] [place] Family Medicine [address] [place] [address] Family Medicine, Physician [address] [place] [place], [place] [phone] Social History Tobacco Use Types Packs/Day Years [...] on filedocumented in this encounter Care Teams Shift Production Supervisor Relationship Specialty Start Date End Date Bhumi Mckeon MD [address] [place] [id number] PCP - General 05/09/17 06/09/24 documented as of this encounter
[2025-09-02 08:31] LABS: Resp Syncy Virus RNA Qual PCR NEGATIVE (Negative); SARS COV2 PCR INHOUSE NEGATIVE (Negative)
[2025-09-02 09:33] VITALS: BP 104/67; PULSE 64; RESP 14; TEMP 36.7; O2SAT 97
[2025-09-02 09:38] VITALS: BP 104/67; PULSE 64; RESP 14; TEMP 36.7; O2SAT 97
== END 2025-09-02 09:39 | disposition home or self-care (01) ==
PROVIDERS: Physician Assistant; Emergency Provider Emergency Medicine
DX: J06.9 Acute upper respiratory infection, unspecified (principal); R07.89 Other chest pain; K92.0 Hematemesis; Z03.818 Encounter for observation for suspected exposure to other biological agents ruled out; Z79.899 Other long term (current) drug therapy
CPT/HCPCS: 36415; 71045; 80053; 83735; 84484; 85025; 85610; 87637; 93005; 99284

== ENCOUNTER → 2025-09-02 07:14 | Outpatient (BNV) | payer OTHER, SELFPAY | PROVIDERS: Emergency Provider Emergency Medicine; Visit Provider Internal Medicine | DX: R06.02 Shortness of breath (principal) | CPT/HCPCS: 93010 ==

== ENCOUNTER → 2025-09-02 08:55 | Outpatient (BNV) | payer MEDICAID, SELFPAY | PROVIDERS: Emergency Provider Emergency Medicine; Visit Provider Radiology Diagnostic Radiology | DX: R05.9 Cough, unspecified (principal) | CPT/HCPCS: 71045 ==